=== PATIENT | female | born 1990 | race Caucasian/White ===

== ENCOUNTER 2016-07-05 16:13 | Emergency (ER) | payer MEDICAID ==
--- NOTE | 2016-07-22 08:17 | ER ---
ADMIT: 07/05/2016 RM/LOC: ER [facility] MR#: [id number] [place], [place] [address] TOREY HANKINS [address] [place] [address] Emergency Room Report SEX: F AGE: 26 : 1990 DATE: 07/05/2016 PRIMARY PROVIDER: Astrid Montoya MD. SUBJECTIVE: The patient is a 26-year-old, who presents to the emergency room complaining of cramping in the lower abdomen, vomiting, diarrhea, nausea, and brown vaginal discharge. This has been going on for 1 day. She says this does not seem like her prior . She has a 4-year-old at this point. REVIEW OF SYSTEMS: Otherwise negative. PAST MEDICAL HISTORY: Negative. MEDICATIONS: Takes multivitamins. PHYSICAL EXAMINATION: VITAL SIGNS: Blood pressure 124/67, respirations 18, heart rate 96. PELVIC EXAM: Vaginal discharge, brownish. Enlarged uterus as expected. No cervical motion tenderness. CLINICAL IMPRESSION: Bacterial vaginosis. Wet mount, clue cells positive. UA, rbc 7, bacteria rare. Treated with clindamycin 300 mg b.i.d. for 7 days. Follow up with Astrid Montoya. For further instructions, see T-sheet. HALI Dalton / Bobby Titus MD / modl JOB #: [id number] CC: Bobby Titus MD, Attending Physician UNKNOWN, Family Physician
== END 2016-07-05 18:30 | disposition home or self-care (01) ==
LOC: ER 16:13
DX: N76.0 Acute vaginitis (principal)